=== PATIENT | female | born 1995 | race Caucasian/White ===

== ENCOUNTER 2019-01-11 17:48 | Emergency (ER) | payer BC ==
[~2019-01-11] VITALS: Ht 167.6 cm; Wt 56.2 kg
[~2019-01-11 17:48] MED LIST: IBUP-1561 PO
[2019-01-11 17:54] VITALS: BP 120/59; PULSE 77; RESP 16; Ht 167.6 cm; Wt 56.2 kg
== END 2019-01-11 18:42 | disposition home or self-care (01) ==
LOC: E/R 17:48
DX: S99.912A Unspecified injury of left ankle, initial encounter (principal); V00.138A Other skateboard accident, initial encounter; Y92.9 Unspecified place or not applicable
CPT/HCPCS: 73610; Z7502